=== PATIENT | male | born 1950 | race Caucasian/White ===

== ENCOUNTER 2023-07-19 07:39 | Day surgery (SDC) | payer MEDICARE, OTHER ==
[2023-07-19] MEDS: Lactated Ringers 1,000 ML IV SCH (07:57)
[2023-07-19] MEDS ORDERED: Sodium Chloride 0.9% 10 ML Syringe FLUSH PRN (08:00)
[2023-07-19] MEDS ORDERED: Midazolam 1 MG/ML 2 ML SDV ONE (09:03)
[2023-07-19] MEDS ORDERED: Propofol 200 MG/20 ML SDV ONE (09:03)
[2023-07-19 10:08] LABS: BASOPHILS ABSOLUTE AUTO 0.02 10^3/uL (0.00-0.10); BASOPHILS PERCENT AUTO 0.3 % (0.0-1.0); EOSINOPHILS ABSOLUTE AUTO 0.05 10^3/uL (0.10-0.30); EOSINOPHILS PERCENT AUTO 0.7 % (1.0-3.0); HEMATOCRIT 43.6 % (40.0-52.0); HEMOGLOBIN 14.4 g/dL (13.0-17.0); IMMATURE GRAN ABSOLUTE AUTO 0.01 10^3/uL (0.00-0.50); IMMATURE GRAN PERCENT AUTO 0.1 % (0.0-5.0); LYMPHOCYTES ABSOLUTE AUTO 0.79 10^3/uL (1.00-4.00); LYMPHOCYTES PERCENT AUTO 11.4 % (20.0-40.0); MEAN CORPUSCULAR HEMOGLOBIN 29.1 pg (27.0-31.0); MEAN CORPUSCULAR VOLUME 88.1 fL (82.0-92.0); MEAN PLATELET VOLUME 9.3 fL (7.4-10.4); MONOCYTES ABSOLUTE AUTO 0.97 10^3/uL (0.10-0.80); NEUTROPHILS ABSOLUTE AUTO 5.08 10^3/uL (2.50-7.00); NEUTROPHILS PERCENT AUTO 73.5 % (50.0-70.0); PLATELET COUNT,PLT 260 10^3/uL (150-400); RED BLOOD CELL COUNT 4.95 10^6/uL (4.50-6.00); RED CELL DISTRIBUTION WIDTH 13.6 % (11.5-14.5); WHITE BLOOD CELL COUNT,WBC 6.92 10^3/uL (5.00-10.00)
[2023-07-19 10:24] LABS: ANION GAP 13.7 mmol/L (5-15); C-REACTIVE PROTEIN 5.06 mg/dL (0.00-0.50); CALCIUM 8.3 mg/dL (8.7-10.3); CARBON DIOXIDE,CO2 26.1 mmol/L (21.0-32.0); EST CRCL DRUG DOSING (CG) 64.72 mL/min; POTASSIUM,K 3.8 mmol/L (3.5-5.1); URIC ACID 7.8 mg/dL (2.6-7.2)
== END 2023-07-19 11:00 | disposition home or self-care (01) ==
LOC: KA.SDS 07:39
PROVIDERS: ATTEND Family Medicine
DX: Z12.11 Encounter for screening for malignant neoplasm of colon (principal); D12.2 Benign neoplasm of ascending colon; D12.4 Benign neoplasm of descending colon; K57.30 Diverticulosis of large intestine without perforation or abscess without bleeding; K64.8 Other hemorrhoids; I10 Essential (primary) hypertension; K21.9 Gastro-esophageal reflux disease without esophagitis; E78.5 Hyperlipidemia, unspecified; E78.00 Pure hypercholesterolemia, unspecified; E66.9 Obesity, unspecified; M19.042 Primary osteoarthritis, left hand; M19.041 Primary osteoarthritis, right hand; H40.9 Unspecified glaucoma; H35.30 Unspecified macular degeneration; K42.9 Umbilical hernia without obstruction or gangrene; Z68.30 Body mass index [BMI] 30.0-30.9, adult; Z80.42 Family history of malignant neoplasm of prostate
CPT/HCPCS: 00811; 36415; 45380; 73110; 80048; 84550; 85025; 86140; 99100; J2250; J2704; J7120; J3490